=== PATIENT | female | born 1995 | race Caucasian/White ===

== ENCOUNTER 2016-07-23 19:17 | Emergency (ER) | payer MEDICAID ==
[2016-07-23 19:57] LABS: Bilirubin Negative (Negative); Blood, Urine Negative (Negative); Clarity Clear (Clear); Glucose, Urine (Dipstick) Negative (Negative); Leukocyte Negative (Negative); Nitrite Negative (Negative); Protein, Urine (Dipstick) 30 mg/dL (Neg-Trace); Urobilinogen 0.2 mg/dL (0.2-1.0); pH, Urine 5.5 (5.0-9.0)
[2016-07-23 19:59] LABS: Specific Gravity, Urine 1.029 (1.002-1.036)
[2016-07-23 20:01] LABS: Bacteria/HPF Rare-Few HPF (None Seen); RBC/HPF 0-3 HPF (0-3); WBC/HPF 0-3 HPF (0-3)
[2016-07-23 20:02] LABS: Pregu Control Bar Appear? YES (CONTROL BAR); Specific Gravity 1.029 (1.002-1.036)
[2016-07-23] MEDS ORDERED: Ondansetron ODT 4 MG TAB ONE (20:06)
== END 2016-07-23 20:42 | disposition home or self-care (01) ==
LOC: MADERS 19:17
DX: R11.2 Nausea with vomiting, unspecified (principal); E78.5 Hyperlipidemia, unspecified; E78.00 Pure hypercholesterolemia, unspecified; F31.9 Bipolar disorder, unspecified; F41.9 Anxiety disorder, unspecified; Z79.899 Other long term (current) drug therapy
CPT/HCPCS: 81003; 81015; 81025; 99284; Q0162

== ENCOUNTER 2016-11-24 16:01 | Emergency (ER) | payer MEDICAID ==
[2016-11-24 16:44] LABS: Pregnancy Test - Urine (BHCG) Negative (Negative)
[2016-11-24 16:45] LABS: Bilirubin Negative (Negative); Blood, Urine Negative (Negative); Clarity Clear (Clear); Glucose, Urine (Dipstick) Negative (Negative); Leukocyte Trace (Negative); Nitrite Negative (Negative); Pregu Control Background? CLEAR/WHITE (CLR/WHITE); Pregu Control Bar Appear? YES (CONTROL BAR); Protein, Urine (Dipstick) Negative (Neg-Trace); Urobilinogen 0.2 mg/dL (0.2-1.0); pH, Urine 5.5 (5.0-9.0)
[2016-11-24 16:47] LABS: Bacteria/HPF None Seen HPF (None Seen); RBC/HPF 0-3 HPF (0-3); Squamous Epithelial 21-50 HPF (0-3); Trichomonas/HPF None Seen HPF (None Seen); WBC/HPF 0-3 HPF (0-3); Yeast-All Forms None Seen HPF (None Seen)
[2016-11-24 16:48] LABS: Oval Fat Bodies/HPF None Seen HPF (None Seen)
== END 2016-11-24 17:18 | disposition home or self-care (01) ==
LOC: MADERS 16:01
DX: K52.9 Noninfective gastroenteritis and colitis, unspecified (principal); K21.9 Gastro-esophageal reflux disease without esophagitis; E78.5 Hyperlipidemia, unspecified; F31.9 Bipolar disorder, unspecified; F41.9 Anxiety disorder, unspecified; Z79.899 Other long term (current) drug therapy
CPT/HCPCS: 81001; 81025; 99284

== ENCOUNTER 2017-08-31 19:42 | Emergency (ER) | payer MEDICAID ==
[2017-08-31] MEDS ORDERED: Promethazine 25 MG TAB ONE (21:59)
[2017-08-31] MEDS ORDERED: Dicyclomine 10 MG CAP ONE (21:59)
== END 2017-08-31 22:00 | disposition home or self-care (01) ==
LOC: MADERS 19:42
DX: K52.9 Noninfective gastroenteritis and colitis, unspecified (principal); K21.9 Gastro-esophageal reflux disease without esophagitis; E78.5 Hyperlipidemia, unspecified; F41.9 Anxiety disorder, unspecified; F31.9 Bipolar disorder, unspecified; Z79.899 Other long term (current) drug therapy
CPT/HCPCS: 99283

== ENCOUNTER 2018-08-07 22:14 | Emergency (ER) | payer MEDICAID ==
[2018-08-07 22:38] LABS: Bilirubin Small (Negative); Blood, Urine Negative (Negative); Glucose, Urine (Dipstick) Negative (Negative); Leukocyte Negative (Negative); Nitrite Negative (Negative); Protein, Urine (Dipstick) 30 mg/dL (Neg-Trace)
[2018-08-07 22:41] LABS: Pregnancy Test - Urine (BHCG) Negative (Negative); Pregu Control Background? CLEAR/WHITE (CLR/WHITE); Pregu Control Bar Appear? YES (CONTROL BAR); Specific Gravity 1.043 (1.002-1.036)
[2018-08-07 22:45] LABS: Clarity Hazy (Clear)
[2018-08-07 22:47] LABS: Bacteria/HPF 2+ HPF (None Seen); RBC/HPF 0-3 HPF (0-3); Specific Gravity, Urine 1.043 (1.002-1.036); WBC/HPF 0-3 HPF (0-3)
[2018-08-07] MEDS ORDERED: Ondansetron ODT 4 MG TAB ONE (23:16)
[2018-08-07] MEDS ORDERED: Loperamide HCl 2 MG CAP ONE (23:16)
== END 2018-08-07 23:21 | disposition home or self-care (01) ==
LOC: MADERS 22:14
DX: R11.2 Nausea with vomiting, unspecified (principal); R19.7 Diarrhea, unspecified; E78.5 Hyperlipidemia, unspecified; F41.9 Anxiety disorder, unspecified; F31.9 Bipolar disorder, unspecified; Z79.899 Other long term (current) drug therapy
CPT/HCPCS: 81003; 81015; 81025; 99284; Q0162

== ENCOUNTER 2020-07-18 08:55 | Emergency (ER) | payer MEDICAID ==
[2020-07-18] MEDS ORDERED: HYDROcodone/Acetaminophen 5/325 mg Tablet ONE (09:51)
[2020-07-18] MEDS ORDERED: Benzonatate 100 MG CAP ONE (09:52)
[2020-07-18] MEDS ORDERED: Dexamethasone 4 MG TAB ONE (09:52)
== END 2020-07-18 10:06 | disposition home or self-care (01) ==
LOC: MADERS 08:55
DX: J02.9 Acute pharyngitis, unspecified (principal); R05 Cough; E78.5 Hyperlipidemia, unspecified; E78.00 Pure hypercholesterolemia, unspecified; E28.2 Polycystic ovarian syndrome; Z79.899 Other long term (current) drug therapy
CPT/HCPCS: 99282; J8540